=== PATIENT | male | born 1985 | race Caucasian/White ===

== ENCOUNTER 2025-02-12 03:33 | Emergency (ER) | payer OTHER ==
[~2025-02-12] VITALS: Ht 165.1 cm; Wt 93.2 kg
[2025-02-12 04:11] VITALS: BP 146/87; PULSE 83; RESP 16; TEMP 98.1; O2SAT 100
[2025-02-12] MEDS ORDERED: LIDOCAINE 1% 10 ML VIAL SQ ONE (04:45)
[2025-02-12] MEDS: PERTUSS(ACELL),DIPH,TET/PF 0.5 ML SYRINGE [ADULT] IM. ONE (05:32)
== END 2025-02-12 06:30 | disposition home or self-care (01) ==
LOC: EMS 03:36
DX: S61.011A Laceration without foreign body of right thumb without damage to nail, initial encounter (principal); W22.8XXA Striking against or struck by other objects, initial encounter; Y93.89 Activity, other specified; Y92.89 Other specified places as the place of occurrence of the external cause; Y99.8 Other external cause status
CPT/HCPCS: 99283; 73130; 90715; 90471; 12002; J3490